=== PATIENT | female | born 1965 ===

== ENCOUNTER 2018-06-04 09:07 | Emergency (ER) | payer SELFPAY ==
[2018-06-04 09:07] VITALS: BMI 27.3
[2018-06-04 09:23] VITALS: BP 112/75; PULSE 88; RESP 18; TEMP 98.4; O2SAT 95
[2018-06-04] MEDS ORDERED: guaiFENesin 100 mg/5 ml Syrup UD PO STA (09:44)
--- NOTE | 2018-06-04 09:45 | C.PDOC ---
History Of Present Illness 52 year old female presents to the ED for evaluation of a dry, non-productive cough, generalized body aches, nasal congestion and subjective fever which began one week ago. Patient has been taking DayQuil, NyQuil and Amoxicillin 500 BID without improvement. She denies nausea, vomiting, diarrhea. Time Seen by Provider: 06/04/18 09:40 Chief Complaint (Nursing): Flu-like Symptoms History Per: Patient History/Exam Limitations: no limitations Onset/Duration Of Symptoms: Other (one week ) Current Symptoms Are (Timing): Still Present Location Of Pain: Diffuse Myalgias Associated Symptoms: Fever, Cough, Nasal Congestion. denies: Sputum, Nausea, Vomiting, Diarrhea Additional History Per: Patient Past Medical History Reviewed: Historical Data, Nursing Documentation, Vital Signs Vital Signs: Last Vital Signs Temp 98.4 F 06/04/18 09:21 Pulse 88 06/04/18 09:21 Resp 18 06/04/18 09:21 BP 112/75 06/04/18 09:21 Pulse Ox 95 06/04/18 09:21 - Medical History PMH: Gastritis, GERD, HTN, Kidney Stones Surgical History: No Surg Hx Family History: States: Unknown Family Hx - Social History Hx Tobacco Use: No Hx Alcohol Use: No Hx Substance Use: No - Immunization History Hx Tetanus Toxoid Vaccination: No Hx Influenza Vaccination: No Hx Pneumococcal Vaccination: No Review Of Systems Constitutional: Positive for: Fever ENT: Positive for: Nose Congestion Respiratory: Positive for: Cough. Negative for: Sputum Gastrointestinal: Negative for: Nausea, Vomiting, Diarrhea Musculoskeletal: Positive for: Other (generalized body aches ) Physical Exam - Physical Exam Appears: Non-toxic, No Acute Distress Skin: Normal Color, Warm, Dry Head: Atraumatic, Normacephalic Eye(s): bilateral: Normal Inspection Ear(s): Bilateral: Normal Nose: Normal, No Discharge Oral Mucosa: Moist Throat: Normal, No Erythema, No Exudate Neck: Supple Chest: Symmetrical, No Deformity, No Tenderness Cardiovascular: Rhythm Regular, No Murmur Respiratory: Normal Breath Sounds, No Rales, No Rhonchi, No Wheezing Extremity: Normal ROM, Capillary Refill (less than 2 seconds ) Neurological/Psych: Oriented x3, Normal Speech, Normal Cognition ED Course And Treatment O2 Sat by Pulse Oximetry: 95 Progress Note: Robitussin PO and Motrin PO given. On reassessment, patient is resting comfortably, remains afebrile, and reports an improvement in her symptoms. Patient is showing no signs of distress and is stable for discharge. She is advised to follow up with her PMD within 1-2 days for further evaluation. Advised to return to the ED if symptoms persist or worsen. Medical Decision Making Medical Decision Making: viral syndrome Disposition Doctor Will See Patient In The: Office Counseled Patient/Family Regarding: Studies Performed, Diagnosis - Disposition Referrals: [facility] [Outside] [facility] [Outside] [facility] [Outside] Disposition: HOME/ ROUTINE Disposition Time: 09:45 Condition: GOOD Additional Instructions: Sigue Dayquil y Nyquil en cantidades y doses adequados NO debe jessica antibioticos- duff infeccio'n es VIRAL y NO BACTERIAL Instructions: Viral Syndrome (DC) Forms: [facility] (Slovenian) Print Language: PRYDEINIG - Clinical Impression Clinical Impression: Influenza-like illness - Scribe Statement The provider has reviewed the documentation as recorded by the Scribe (Ayse Morales) Provider Attestation: All medical record entries made by the Scribe were at my direction and personally dictated by me. I have reviewed the chart and agree that the record accurately reflects my personal performance of the history, physical exam, medical decision making, and the department course for this patient. I have also personally directed, reviewed, and agree with the discharge instructions and disposition.
[2018-06-04] MEDS ORDERED: guaiFENesin 100 mg/5 ml Syrup UD ONE (09:53)
== END 2018-06-04 10:15 | disposition home or self-care (01) ==
LOC: C.ER 09:07
DX: J11.1 Influenza due to unidentified influenza virus with other respiratory manifestations (principal)